=== PATIENT | female | born 1955 | race Caucasian/White ===

== ENCOUNTER 2018-03-13 19:40 | Emergency (ER) | payer MEDICARE ==
[2018-03-13] MEDS ORDERED: DEXAMETHASONE SOD PHOSPHATE 4 MG/ML 1ML VIAL ONE (20:02)
[2018-03-13] MEDS ORDERED: ACETAMINOPHEN-CODEINE ELIXIR 5 ML UDCUP ONE (20:02)
== END 2018-03-13 20:41 | disposition home or self-care (01) ==
LOC: EDH 19:40
DX: M94.0 Chondrocostal junction syndrome [Tietze] (principal); R05 Cough; I10 Essential (primary) hypertension; Z88.6 Allergy status to analgesic agent; Z98.890 Other specified postprocedural states
CPT/HCPCS: 71045; 93005; 96372; 99284; J1100